=== PATIENT | male | born 1965 | race Caucasian/White ===

== ENCOUNTER 2017-10-07 19:24 | Emergency (ER) | payer BC ==
--- NOTE | 2017-10-07 20:31 | UC ---
Skin Complaint HPI - HPI Summary HPI Summary: Per air saw operator: "tick on right side abdomin , unsure how long it has been present." [place] in the [place] for the past 4 days but did not notice it until this afternoon. didnt try to remove it. no bulls' eye rash. no fevers or joint aches. - History of Current Complaint Chief Complaint: UCSkin Time Seen by Provider: 10/07/17 20:29 Stated Complaint: TICK Pain Intensity: 0 - Allergy/Home Medications Allergies/Adverse Reactions: Allergies Allergy/AdvReac Type Severity Reaction Status Date / Time No Known Allergies Allergy Verified 10/07/17 20:09 Home Medications: Home Medications Levothyroxine TAB* [Synthroid 88 MCG TAB*] 125 mcg PO DAILY 10/07/17 [History Confirmed 10/07/17] Lisinopril TAB* [Prinivil TAB 10 MG*] 10 mg PO DAILY 10/07/17 [History Confirmed 10/07/17] Review of Systems Constitutional: Negative Skin: Negative Eyes: Negative ENT: Negative Respiratory: Negative Cardiovascular: Negative Gastrointestinal: Negative Genitourinary: Negative Motor: Negative Neurovascular: Negative Musculoskeletal: Negative Neurological: Negative Psychological: Negative Is Patient Immunocompromised?: No All Other Systems Reviewed And Are Negative: Yes PMH/Surg Hx/FS Hx/Imm Hx Previously Healthy: Yes Endocrine History: Hypothyroidism - Surgical History Surgical History: Yes Surgery Procedure, Year, and Place: vasectomy. T&A - Family History Known Family History: Positive: Hypertension - Social History Alcohol Use: None Substance Use Type: None Smoking Status (MU): Never Smoked Tobacco Physical Exam Triage Information Reviewed: Yes Appearance: Well-Appearing, No Pain Distress, Well-Nourished Vital Signs: Initial Vital Signs Temp 98.2 F 10/07/17 20:03 Pulse 67 10/07/17 20:03 Resp 16 10/07/17 20:03 BP 154/92 10/07/17 20:03 Pulse Ox 97 10/07/17 20:03 Respiratory: Positive: Lungs clear, Normal breath sounds Cardiovascular: Positive: RRR Musculoskeletal Exam: Normal Neurological Exam: Normal Psychological Exam: Normal Skin: Positive: Other - rt abdomen w/ embedded live tic. 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 no erythema, no d/c, no bull's eye rash Course/Dx - Course Course Of Treatment: no evidence for lyme. -treated w. 200mgs doxy x 1 dose here based on ? exposure time. although likely more recent bite based on that it is not engorged and still alive. -he is very agreeable w/ plan. - Differential Diagnoses - Skin Complaint Differential Diagnoses: Allergic Reaction, Tick Born Illness - Diagnoses Provider Diagnoses: Tic bite Discharge - Sign-Out/Discharge Documenting (check all that apply): Post-Discharge Follow Up - Discharge Plan Condition: Stable Disposition: HOME Patient Education Materials: Tick Bite (ED) Referrals: Dalton Mclean DO [Primary Care Provider] - Additional Instructions: -You have been given 200mgs of doxycycline while you were here tonight. Watch for any signs of fevers, joint aches and bulls' eye rash. - Billing Disposition and Condition Condition: STABLE Disposition: HOME
[2017-10-07] MEDS ORDERED: DOXYcycline CAP(*) 100 MG PO ONE (21:18)
== END 2017-10-07 21:27 | disposition home or self-care (01) ==
LOC: UCCORT 19:24
DX: S30.861A Insect bite (nonvenomous) of abdominal wall, initial encounter (principal); W57.XXXA Bitten or stung by nonvenomous insect and other nonvenomous arthropods, initial encounter; Y92.828 Other wilderness area as the place of occurrence of the external cause
CPT/HCPCS: 99202; A9270-GY; G0463